=== PATIENT | male | born 1995 | race Asian ===

== ENCOUNTER 2022-05-19 23:00 | Emergency (ER) | payer BC ==
[~2022-05-19] VITALS: Ht 180.3 cm; Wt 113.4 kg
[2022-05-19 23:44] LABS: PLATELET COUNT 200 K/uL (142-355)
[2022-05-19 23:47] LABS: POTASSIUM 3.4 mmol/L (3.6-5.2)
[2022-05-19] MEDS ORDERED: TAMIFLU75 MG PO (23:59)
[2022-05-20 01:22] VITALS: BP 147/81; TEMP 99
== END 2022-05-20 01:22 | disposition home or self-care (01) ==
LOC: ED 23:00
PROVIDERS: Emergency Medicine
DX: J10.1 Influenza due to other identified influenza virus with other respiratory manifestations (principal); F17.200 Nicotine dependence, unspecified, uncomplicated
CPT/HCPCS: 80048; 85027; 87502; 87651; 99283